=== PATIENT | male | born 1990 | race Caucasian/White ===

== ENCOUNTER 2021-01-24 18:43 | Emergency (ER) | payer SELFPAY ==
[~2021-01-24] VITALS: Ht 188 cm; Wt 83.9 kg
== END 2021-01-24 19:48 | disposition home or self-care (01) ==
LOC: ER 18:43
DX: F10.129 Alcohol abuse with intoxication, unspecified (principal)
CPT/HCPCS: 99283

== ENCOUNTER 2022-11-08 11:11 | Emergency (ER) | payer OTHER ==
[~2022-11-08] VITALS: Ht 175.3 cm; Wt 90.7 kg
[2022-11-08 11:46] VITALS: BP 161/103
== END 2022-11-08 13:36 | disposition home or self-care (01) ==
LOC: ER 11:11
DX: S61.211A Laceration without foreign body of left index finger without damage to nail, initial encounter (principal); W31.2XXA Contact with powered woodworking and forming machines, initial encounter; Y92.89 Other specified places as the place of occurrence of the external cause; Y99.0 Civilian activity done for income or pay
CPT/HCPCS: 12001; 99282-25